=== PATIENT | male | born 1940 | race Caucasian/White ===

== ENCOUNTER 2018-08-16 15:10 | Emergency (ER) | payer OTHER ==
[~2018-08-16] VITALS: Ht 177.8 cm; Wt 81.6 kg
[~2018-08-16 15:10] MED LIST: ATORVASTATIN CA40 MG; DIVALPROEX SOD125 M1; MEMANTINE HCL10 MG; RIVASTIGMINE3 MG; SEROQUEL25 MG; SERTRALINE HCL50 MG; XARELTO15 MG
== END 2018-08-16 17:51 | disposition home or self-care (01) ==
LOC: ER 15:10
DX: S01.82XA Laceration with foreign body of other part of head, initial encounter (principal); W26.8XXA Contact with other sharp object(s), not elsewhere classified, initial encounter; Y93.89 Activity, other specified; Y92.89 Other specified places as the place of occurrence of the external cause; Y99.8 Other external cause status

== ENCOUNTER → 2018-11-12 | Emergency (ER) | payer OTHER ==
[~2018-11-12] VITALS: Ht 177.8 cm; Wt 81.6 kg
== END | disposition home or self-care (01) ==
LOC: ER 21:46
DX: I82.491 Acute embolism and thrombosis of other specified deep vein of right lower extremity (principal); L03.115 Cellulitis of right lower limb; M79.605 Pain in left leg; M79.604 Pain in right leg; I87.2 Venous insufficiency (chronic) (peripheral)

== ENCOUNTER 2019-10-22 11:13 | Outpatient (CLI) | payer OTHER | END 2019-10-23 11:48 | disposition home or self-care (01) | LOC: RAD 11:13 | DX: I15.8 Other secondary hypertension (principal); I10 Essential (primary) hypertension ==

== ENCOUNTER 2019-10-26 15:13 | Outpatient (CLI) | payer OTHER | END 2019-10-26 15:56 | disposition home or self-care (01) | LOC: NUCLEAR 15:13 | DX: I73.9 Peripheral vascular disease, unspecified (principal); Z86.718 Personal history of other venous thrombosis and embolism; I77.89 Other specified disorders of arteries and arterioles ==

== ENCOUNTER 2020-10-03 13:12 | Outpatient (CLI) | payer OTHER | END 2020-10-03 13:15 | disposition home or self-care (01) | LOC: RAD 13:12 | PROVIDERS: ATTEND Ophthalmology | DX: I10 Essential (primary) hypertension (principal); I15.8 Other secondary hypertension ==